=== PATIENT | female | born 1975 | race Caucasian/White ===

== ENCOUNTER → 2016-10-07 | Outpatient (CLI) | payer OTHER ==
[~2016-10-07] MED LIST: NO HOME MEDICATIONS
== END ==
LOC: MC.RAD 11:40
DX: Z12.31 Encounter for screening mammogram for malignant neoplasm of breast (principal)

== ENCOUNTER → 2018-01-22 | Outpatient (CLI) | payer OTHER | LOC: MC.RAD 12:51 | DX: Z12.31 Encounter for screening mammogram for malignant neoplasm of breast (principal) ==

== ENCOUNTER → 2019-02-23 | Outpatient (CLI) | payer OTHER | LOC: MC.RAD 11:26 | DX: Z12.31 Encounter for screening mammogram for malignant neoplasm of breast (principal) ==

== ENCOUNTER → 2021-06-01 | Outpatient (CLI) | payer OTHER | LOC: MC.RAD 11:21 | DX: Z12.31 Encounter for screening mammogram for malignant neoplasm of breast (principal) ==